=== PATIENT | female | born 2000 | race Caucasian/White ===

== ENCOUNTER → 2019-06-05 10:09 | Outpatient (CLI) | payer BC, SELFPAY ==
--- NOTE | 2019-06-05 10:25 | US_ITS ---
US transvaginal HISTORY: ITS.REASON: US T/V- Amenorrhea ORDERING PHYSICIAN: Simran Escobar MD PATIENT AGE: 18 years Comparison: None FINDINGS: The uterus is 8 x 3 x 4 cm with a combined endometrial thickness of 1 cm.. No uterine mass evident. Right ovary is 4 x 2 cm. Left ovary is 5 x 2 cm. No adnexal mass or cul-de-sac fluid evident. IMPRESSION: Unremarkable pelvic ultrasound
== END ==
PROVIDERS: PCP Family Medicine; Visit Provider Obstetrics & Gynecology
DX: N91.2 Amenorrhea, unspecified (principal)
CPT/HCPCS: 76830

== ENCOUNTER → 2020-08-05 09:46 | Outpatient (CLI) | payer BC, SELFPAY ==
--- NOTE | 2020-08-05 09:54 | XR_ITS ---
PROCEDURE: XR THORACIC SPINE 3V CLINICAL INDICATION: ACUTE L SIDED THORACIC BACK PAIN COMPARISON: No exams were available for comparison FINDINGS: There is very minor levo scoliotic curvature between C7 and T6 probably no more than 3-4 degrees. All thoracic vertebrae appear intact and all pedicles are intact. There is no paraspinal mass. IMPRESSION: Very minor levo scoliotic curvature upper thoracic spine which could actually be positional otherwise unremarkable study Dictated by: Dr. Shaun Griffith MD 08/05/2020 10:43 Dr. Shaun Griffith MD in [place] 08/05/2020 10:43
== END ==
PROVIDERS: PCP Family Medicine; Visit Provider Nurse Practitioner Family
DX: M54.6 Pain in thoracic spine (principal)
CPT/HCPCS: 72072

== ENCOUNTER 2020-11-24 11:34 | Emergency (ER) | payer OTHER, SELFPAY ==
[2020-11-24 11:40] VITALS: BP 128/77; PULSE 115; RESP 17; TEMP 36.6; O2SAT 97; BMI 46.7
--- NOTE | 2020-11-24 11:52 | XR_ITS ---
PROCEDURE: XR FOOT LT MIN 3V CLINICAL INDICATION: injured at work Posttraumatic pain COMPARISON: No exams were available for comparison FINDINGS: Calcific density noted at the base of the 2nd metatarsal laterally and may be related to an avulsion injury measuring approximately [address] may confirm if this is area of clinical concern. There is appropriate alignment at the 2nd metatarsal tarsal junction. No other significant anomalies are evident. The joint spaces are well-preserved. No significant degenerative/arthritic changes. No erosive changes evident. Other findings:None. IMPRESSION: Calcification at the base of the 2nd metatarsal which could be due to an avulsion injury age indeterminate otherwise negative. MRI or CT may provide further evaluation. Dictated by: Maico Alva MD 11/24/2020 13:55 Maico Alva MD in [place] 11/24/2020 13:55
--- NOTE | 2020-11-24 12:40 | HMH.EDUTC ---
[facility] [place] Disposition Clinical Impression: Left ankle sprain Qualifiers: Encounter type: initial encounter Involved ligament of ankle: unspecified ligament Qualified Code(s): S93.402A - Sprain of unspecified ligament of left ankle, initial encounter Left ankle pain Qualifiers: Chronicity: acute Qualified Code(s): M25.572 - Pain in left ankle and joints of left foot Disposition: Home, Self-Care Condition on Discharge: Good Instructions: How to Use Crutches, Ankle Sprain, DI for Ankle Sprain, How to Use a Walking Boot Additional Instructions: Rest the extremity, apply ice for 15 minutes as tolerated three or four times per day, Elevate the extremity as tolerated while you are resting. Take ibuprofen for pain. I sent in a prescription to your pharmacy. Follow up with Dr. Brito (podiatry). Sometimes there can be fractures that don't show up well on the first set of x-rays. So, you should follow up if you continue to have symptoms. I put in a referral but you need to call her office and schedule an appointment. Follow up with your regular doctor. GO TO THE ER FOR ANY WORSENING SYMPTOMS Prescriptions: Ibuprofen [Ibuprofen 600mg Tablet] 600 mg PO Q6HP PRN #30 tab PRN Reason: Mild Pain Transmission Status: Received by [id number] Referrals: Jcarlos Marie MD [Primary Care Provider] - Ana Rosa Ruiz MD [Physician] - Vilma Brito DPM [Staff Physician] - Forms: Work/School Release Time of Disposition: 13:28 Medical Decision Making - Medical Records Medical records reviewed: No: I reviewed the patient's medical records. - Earl Inquiry Pt receiving controlled substance: No Vital Signs: 11/24/20 11:40 11/24/20 13:32 Temperature 97.9 F 97.9 F Temperature Source Oral Pulse Rate 115 H Pulse Rate [Right Brachial] 115 H Respiratory Rate 17 17 Blood Pressure 128/77 Blood Pressure [Right Arm] 128/77 Blood Pressure Mean [Right Arm] 94 Blood Pressure Source [Right Arm] Automatic Cuff Blood Pressure Position [Right Arm] Sitting 02 Sat by Pulse Oximetry 97 Oxygen Delivery Method Room Air - Radiology Data #1 Image(s): Ankle Image Reviewed: Yes I reviewed the patient's radiology image Preliminary Findings: No Fracture Seen [facility] HPI - General Stated complaint: [id number] left foot pain Time Seen by Provider: 11/24/20 12:40 Mode of Arrival: Ambulatory Source of Information: Patient Limitations: No Limitations Description of Symptoms (Recalled from Triage Doc. 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 Since then she has had left ankle pain that is worse when she bears weight or walks on it. - Related Data Home Medications Medication Instructions Recorded Confirmed Lisinopril/Hydrochlorothiazide 1 tab PO DAILY 11/24/20 11/24/20 [Lisinopril-Hctz 10-12.5 mg Tab*] Montelukast Sodium [Singulair] 10 mg PO QPM 11/24/20 11/24/20 Previous Rx's Medication Instructions Recorded Ibuprofen [Ibuprofen 600mg 600 mg PO Q6HP PRN #30 tab 11/24/20 Tablet] Allergies Allergy/AdvReac Type Severity Reaction Status Date / Time No Known Allergies Allergy Verified 06/15/19 10:19 - Worker's Comp Is this a Worker's Comp case?: No [facility] History - Hepatitis A Screen Drug use history?: No High risk sexual behaviors?: No History of sexually transmitted infection?: No Currently employed?: No Childcare worker?: No Do you have indoor plumbing?: Yes Do you have electricity?: Yes Attestation statement:: This corey
[2020-11-24 13:32] VITALS: BP 128/77; PULSE 115; RESP 17; TEMP 36.6; O2SAT 97
== END 2020-11-24 13:45 | disposition home or self-care (01) ==
PROVIDERS: Emergency Provider Nurse Practitioner Family; PCP Family Medicine
DX: S93.402A Sprain of unspecified ligament of left ankle, initial encounter (principal); X50.1XXA Overexertion from prolonged static or awkward postures, initial encounter; Y92.69 Other specified industrial and construction area as the place of occurrence of the external cause; Y99.0 Civilian activity done for income or pay
CPT/HCPCS: 29515; 73630; 99202; G0463

== ENCOUNTER 2021-04-08 19:56 | Emergency (ER) | payer BC, SELFPAY ==
[2021-04-08 20:13] VITALS: BP 138/94; PULSE 90; RESP 16; TEMP 36.7; O2SAT 100; BMI 48.1
--- NOTE | 2021-04-08 20:18 | HMH.EDUTC ---
[facility] [place] Clinical Impression: Contact dermatitis Qualifiers: Contact dermatitis type: unspecified Contact dermatitis trigger: unspecified trigger Qualified Code(s): L25.9 - Unspecified contact dermatitis, unspecified cause Disposition: Home, Self-Care Condition on Discharge: Good Instructions: DI for Contact Dermatitis Additional Instructions: Avoid contact with the offending substance. Don't start the oral steroids until tomorrow. Follow up with your regular doctor. GO TO THE ER FOR ANY WORSENING SYMPTOMS OR CONCERNS Prescriptions: methylPREDNISolone [Medrol] 4 mg PO DIRECTED 6 Days #21 tab.[email or web address] Transmission Status: Received by [facility] Triamcinolone Acetonide 1 applicatio TP TIDP PRN 7 Days #1 tube PRN Reason: Itching Transmission Status: Received by [facility] Referrals: Jcarlos Marie MD [Primary Care Provider] - Time of Disposition: 20:22 Medical Decision Making - Medical Records Medical records reviewed: No: I reviewed the patient's medical records. - Earl Inquiry Pt receiving controlled substance: No Vital Signs: 04/08/21 20:13 04/08/21 20:25 Temperature 98.1 F 98.1 F Temperature Source Oral Pulse Rate 90 Pulse Rate [Right] 90 Respiratory Rate 16 14 Blood Pressure 138/94 H Blood Pressure [Right Arm] 138/94 H Blood Pressure Mean [Right Arm] 108 02 Sat by Pulse Oximetry 100 Orders (Tests/Meds): ED MEDICATIONS Discontinued Medications Generic Name Dose Route Start Last Admin Trade Name Freq PRN Reason Stop Dose Admin Methylprednisolone Sodium Succinate 125 mg 04/08/21 20:18 04/08/21 20:24 Methylprednisolone Sod Succ 125mg Vial IM 04/08/21 20:19 125 mg ONCE ONE Administration [facility] [place] HPI - General Stated complaint: Blister on both hands Time Seen by Provider: 04/08/21 20:18 Mode of Arrival: Ambulatory Source of Information: Patient Limitations: No Limitations Description of Symptoms (Recalled from Triage Doc. by RN): pt c/o an allergic reaction to dog bane a week ago. she has a rash on her hands and wrists and has started getting blisters on her hands. HEENT Symptoms (Recalled from RN notes): Yes Resp Symptoms (Recalled from RN notes): No Skin Symptoms (Recalled from RN notes): Yes (rash on hands and wrists bilatterally) MS Symptoms (Recalled from RN notes): No Functional Status (Recalled from RN notes): na - History of Present Illness Provider Complaint: She states that for the past 1 week, she has had itching and irritation of her left hand and forearm. She thinks that she pulled some weeds that she was allergic to before her symptoms began. It is on her right hand too, but not as bad. - Related Data Home Medications Medication Instructions Recorded Confirmed Lisinopril/Hydrochlorothiazide 1 tab PO DAILY 11/24/20 11/24/20 [Lisinopril-Hctz 10-12.5 mg Tab*] Montelukast Sodium [Singulair] 10 mg PO QPM 11/24/20 11/24/20 Previous Rx's Medication Instructions Recorded Ibuprofen [Ibuprofen 600mg 600 mg PO Q6HP PRN #30 tab 11/24/20 Tablet] Triamcinolone Acetonide 1 applicatio TP TIDP PRN 7 Days #1 04/08/21 tube methylPREDNISolone [Medrol] 4 mg PO DIRECTED 6 Days #21 04/08/21 tab.[email or web address] Allergies Allergy/AdvReac Type Severity Reaction Status Date / Time No Known Allergies Allergy Verified 06/15/19 10:19 - Worker's Comp Is this a Worker's Comp case?: No [facility] History - Hepatitis A Screen Drug use history?: No High risk sexual behaviors?: No History of sexually transmitted infection?: No Currently employed?: No Childcare worker?: No Do you have indoor plumbing?: Yes Do you have electricity?: Yes Attestation statement:: This patient has been screened for Hepatitis A risk factors. I have reviewed the patient's past medical history: Yes 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: Reports:: Hypertension Other 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: Reports: Sinus Problems Laterality Cases: Bilateral: Other Other S
[2021-04-08 20:25] VITALS: BP 138/94; PULSE 90; RESP 14; TEMP 36.7
== END 2021-04-08 20:28 | disposition home or self-care (01) ==
PROVIDERS: Emergency Provider Nurse Practitioner Family; PCP Family Medicine
DX: L25.9 Unspecified contact dermatitis, unspecified cause (principal)
CPT/HCPCS: 96372; 99202; G0463

== ENCOUNTER 2021-06-24 12:33 | Emergency (ER) | payer BC, SELFPAY ==
[2021-06-24 12:40] VITALS: BP 142/70; PULSE 116; RESP 18; TEMP 36.7; O2SAT 98; BMI 48.4
--- NOTE | 2021-06-24 13:18 | HMH.EDUTC ---
[facility] [place] Clinical Impression: Otitis externa Qualifiers: Otitis externa type: unspecified type Chronicity: unspecified Laterality: right Qualified Code(s): H60.91 - Unspecified otitis externa, right ear Disposition: Home, Self-Care Condition on Discharge: Good Instructions: How to Instill Ear Drops, Otitis Externa, DI for Otitis Externa, Etodolac Additional Instructions: Continue taking Cefdinir as prescribed by your Family Doctor Go get ear drop and start them immediately You was shown how to wick the medication into the ear if you have problems getting the medication in Follow up with your Family Doctor on Saturday if no improvement Follow up with ENT if needed Straight to ER if any life threatening symptoms Return if needed Prescriptions: Etodolac 200 mg PO Q6HP PRN #20 cap PRN Reason: Moderate Pain Transmission Status: Received by [facility] Neomyc/Colist/Hydrocort/Thonzn [Cortisporin-Tc Ear Suspension] 4 drops EAR-RIGHT QID 7 Days #1 bottle Transmission Status: Received by [facility] Referrals: Jcarlos Marie MD [Primary Care Provider] - As needed Thien Raymundo MD [Staff Physician] - Ana Rosa Butler MD [Consulting Physician] - Medical Decision Making - Earl Inquiry Pt receiving controlled substance: No Earl was queried for this patient: No Vital Signs: 06/24/21 12:40 06/24/21 13:29 Temperature 98.1 F 98.1 F Temperature Source Oral Pulse Rate 116 H Pulse Rate [Right Brachial] 116 H Respiratory Rate 18 18 Blood Pressure 142/70 H Blood Pressure [Right Arm] 142/70 H Blood Pressure Mean [Right Arm] 94 Blood Pressure Source [Right Arm] Automatic Cuff Blood Pressure Position [Right Arm] Sitting 02 Sat by Pulse Oximetry 98 Oxygen Delivery Method Room Air Orders (Tests/Meds): ED MEDICATIONS Discontinued Medications Generic Name Dose Route Start Last Admin Trade Name Freq PRN Reason Stop Dose Admin Methylprednisolone Sodium Succinate 125 mg 06/24/21 13:21 06/24/21 13:24 Methylprednisolone Sod Succ 125mg Vial IM 06/24/21 13:22 125 mg ONCE ONE Administration Medical Decision Narrative: Patient reports that she is currently on her period [facility] [place] - General Stated complaint: right earache Time Seen by Provider: 06/24/21 13:18 Mode of Arrival: Ambulatory Source of Information: Patient Limitations: No Limitations Description of Symptoms (Recalled from Triage Doc. by RN): PATIENT C/O RIGHT EAR INFECTION. STATES SHE WAS DIAGNOSED ON SATURDAY AND GIVEN CEFDINIR. SHE SAYS PAIN IS WORSE AND THERE IS DRAINAGE COMING FROM EAR HEENT Symptoms (Recalled from RN notes): Yes Resp Symptoms (Recalled from RN notes): No Skin Symptoms (Recalled from RN notes): No MS Symptoms (Recalled from RN notes): No Functional Status (Recalled from RN notes): WNL - History of Present Illness Provider Complaint: Patient state that she seen PCP on and was given oral antibotics for ear infection State that the pain in her right ear has continued to get worse and now having some drainage from the ear and pain is worse States that she has pain when she opens her mouth or touches that side of her ear State that she has done this before and had to have ear drops too - Related Data Home Medications Medication Instructions Recorded Confirmed losartan 25 mg tablet 25 mg PO DAILY 05/29/21 05/29/21 Previous Rx's Medication Instructions Recorded Etodolac 200 mg PO Q6HP PRN #20 cap 06/24/21 Neomyc/Colist/Hydrocort/Thonzn 4 drops EAR-RIGHT QID 7 Days #1 06/24/21 [Cortisporin-Tc Ear Suspension] bottle Allergies Allergy/AdvReac Type Severity Reaction Status Date / Time No Known Allergies Allergy Verified 05/29/21 15:48 - Worker's Comp Is this a Worker's Comp case?: No [facility] History - Hepatitis A Screen Drug use history?: No High risk sexual behaviors?: No History of sexually transmitted infection?: No Currently employed?: No Childcare
[2021-06-24 13:29] VITALS: BP 142/70; PULSE 116; RESP 18; TEMP 36.7; O2SAT 98
== END 2021-06-24 13:35 | disposition home or self-care (01) ==
PROVIDERS: Emergency Provider Nurse Practitioner; PCP Family Medicine
DX: H60.91 Unspecified otitis externa, right ear (principal); I10 Essential (primary) hypertension
CPT/HCPCS: 96372; 99202; G0463

== ENCOUNTER 2021-10-12 16:31 | Emergency (ER) | payer BC, SELFPAY ==
[2021-10-12 16:56] VITALS: BP 121/80; PULSE 116; RESP 18; TEMP 36.8; O2SAT 98; BMI 48.4
--- NOTE | 2021-10-12 17:06 | HMH.EDUTC ---
[facility] [place] Disposition Clinical Impression: Otitis media Qualifiers: Otitis media type: suppurative Chronicity: acute Laterality: bilateral Recurrence: non-recurrent Spontaneous tympanic membrane rupture: without spontaneous rupture Qualified Code(s): H66.003 - Acute suppurative otitis media without spontaneous rupture of ear drum, bilateral Disposition: Home, Self-Care Condition on Discharge: Good Instructions: Middle Ear Infection, DI for Otitis Media (Middle Ear Infection)-Child Additional Instructions: Drink plenty of fluids. Take tylenol or ibuprofen for pain or fever. Take the medications as directed. Follow up with your regular doctor. GO TO THE ER FOR ANY WORSENING SYMPTOMS Prescriptions: Amoxicillin/Potassium Clav [Augmentin 875-125 Tablet] 1 tab PO Q12H 10 Days #20 tab Transmission Status: Received by [facility] predniSONE [Prednisone 20mg Tab] 20 mg PO BID 5 Days #10 tab Transmission Status: Received by [facility] Referrals: Jcarlos Marie MD [Primary Care Provider] - Forms: Work/School Release Time of Disposition: 17:22 Medical Decision Making - Medical Records Medical records reviewed: No: I reviewed the patient's medical records. - Earl Inquiry Pt receiving controlled substance: No Vital Signs: 10/12/21 16:56 10/12/21 17:31 Temperature 98.3 F 98.3 F Temperature Source Oral Pulse Rate 116 H Pulse Rate [Left Radial] 116 H Respiratory Rate 18 18 Blood Pressure 121/80 Blood Pressure [Right Arm] 121/80 Blood Pressure Mean [Right Arm] 93 Blood Pressure Source [Right Arm] Automatic Cuff Blood Pressure Position [Right Arm] Sitting 02 Sat by Pulse Oximetry 98 Oxygen Delivery Method Room Air Room Air - Lab Data Lab results reviewed: Yes: I reviewed the patient's lab results. [facility] [place] HPI - General Stated complaint: ear pain Time Seen by Provider: 10/12/21 17:06 Mode of Arrival: Ambulatory Source of Information: Patient Limitations: No Limitations Description of Symptoms (Recalled from Triage Doc. by RN): pt to [facility] c/o left ear pain that started today. HEENT Symptoms (Recalled from RN notes): Yes Resp Symptoms (Recalled from RN notes): No Skin Symptoms (Recalled from RN notes): No MS Symptoms (Recalled from RN notes): No Functional Status (Recalled from RN notes): na - History of Present Illness Provider Complaint: She c/o left ear pain that started today. She has a history of getting ear infections frequently. She has some drops that her pcp prescribed her for when she gets like this, but she states they are not helping. She also has a left sided sore throat, but she states that it is not near as bad as her ear is. She denies cough, but she has sinus drainage also. - Related Data Home Medications Medication Instructions Recorded Confirmed losartan 100 1 tab PO tab 07/04/21 07/27/21 mg-hydrochlorothiazide 12.5 mg tablet Previous Rx's Medication Instructions Recorded Etodolac 200 mg PO Q6HP PRN #20 cap 06/24/21 methylprednisolone 4 mg tablets in See Rx Instructions PO PER PKG DIR 07/04/21 a dose pack #21 tab Amoxicillin/Potassium Clav 1 tab PO Q12H 10 Days #20 tab 10/12/21 [Augmentin 875-125 Tablet] predniSONE [Prednisone 20mg 20 mg PO BID 5 Days #10 tab 10/12/21 Tab] Allergies Allergy/AdvReac Type Severity Reaction Status Date / Time No Known Allergies Allergy Verified 07/27/21 14:00 - Worker's Comp Is this a Worker's Comp case?: No [facility] History - Hepatitis A Screen Drug use history?: No High risk sexual behaviors?: No History of sexually transmitted infection?: No Currently employed?: No Childcare worker?: No Do you have indoor plumbing?: Yes Do you have electricity?: Yes Attestation statement:: This patient has been screened for Hepatitis A risk factors. I have reviewed the patient's past medical history: Yes 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: Reports:: Hypertension Other 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: Reports: Si
[2021-10-12 17:31] VITALS: BP 121/80; PULSE 116; RESP 18; TEMP 36.8; O2SAT 98
== END 2021-10-12 17:32 | disposition home or self-care (01) ==
PROVIDERS: Emergency Provider Nurse Practitioner Family; PCP Family Medicine
DX: H66.003 Acute suppurative otitis media without spontaneous rupture of ear drum, bilateral (principal); I10 Essential (primary) hypertension
CPT/HCPCS: 99202; G0463

== ENCOUNTER 2021-10-17 10:28 | Emergency (ER) | payer BC, SELFPAY ==
[2021-10-17 12:39] VITALS: BP 152/89; PULSE 91; RESP 14; TEMP 37.2; O2SAT 100; BMI 48.4
--- NOTE | 2021-10-17 12:48 | HMH.EDUTC ---
[facility] [place] Clinical Impression: Otitis media Qualifiers: Otitis media type: suppurative Chronicity: acute Laterality: bilateral Recurrence: non-recurrent Spontaneous tympanic membrane rupture: without spontaneous rupture Qualified Code(s): H66.003 - Acute suppurative otitis media without spontaneous rupture of ear drum, bilateral Disposition: Home, Self-Care Condition on Discharge: Good Instructions: Middle Ear Infection Additional Instructions: Keep trying to get in to see Dr. Butler. You may need a tube in your ear drum. Regardless, she will be able to help with this. Take the medication as directed. Stop the augmentin that you are on and start the new antibiotic (cefdinir) Start the oral steroids tomorrow. Use the are drops as directed. Follow up with your primary care physician. GO TO THE ER OR ANY WORSENING SYMPTOMS OR CONCERNS Prescriptions: Ciprofloxacin HCl/Dexameth [Cipro 0.3%-Dex 0.1% Otic Susp 7.5mL] 2 drops EAR-LEFT BID 7 Days #1 ml [email or web address] methylPREDNISolone [Medrol] 4 mg PO DIRECTED 6 Days #21 packet [facility]: [email or web address] Cefdinir [Omnicef 300mg Capsule] 300 mg PO BID #20 cap Transmission Status[email or web address] Referrals: Jcarlos Marie MD [Primary Care Provider] - Time of Disposition: 13:12 Medical Decision Making - Medical Records Medical records reviewed: No: I reviewed the patient's medical records. - Earl Inquiry Pt receiving controlled substance: No Vital Signs: 10/17/21 12:39 Temperature 99 F Temperature Source Oral Pulse Rate [Left] 91 H Respiratory Rate 14 Blood Pressure [Right Arm] 152/89 H Blood Pressure Mean [Right Arm] 110 02 Sat by Pulse Oximetry 100 Orders (Tests/Meds): ED MEDICATIONS Discontinued Medications Generic Name Dose Route Start Last Admin Trade Name Freq PRN Reason Stop Dose Admin Ceftriaxone Sodium 1 gm 10/17/21 12:59 Ceftriaxone 1gm Vial IM 10/17/21 13:00 ONCE ONE Lidocaine HCl 0 ml 10/17/21 12:59 Lidocaine 1% 5ml Pf Vial IM 10/17/21 13:00 ONCE ONE Methylprednisolone Sodium Succinate 62.5 mg 10/17/21 12:59 Methylprednisolone Sod Succ 125mg Vial IM 10/17/21 13:00 ONCE ONE [facility] [place] HPI - General Stated complaint: bilateral ear pain Time Seen by Provider: 10/17/21 12:48 Mode of Arrival: Ambulatory Source of Information: Patient Limitations: No Limitations Description of Symptoms (Recalled from Triage Doc. by RN): pt c/o a L ear infection, pt was tx here on 10/12. pt states the meds have not provided any relief. HEENT Symptoms (Recalled from RN notes): Yes (ears ache) Resp Symptoms (Recalled from RN notes): No Skin Symptoms (Recalled from RN notes): No MS Symptoms (Recalled from RN notes): No Functional Status (Recalled from RN notes): wnl - History of Present Illness Provider Complaint: She is back to follow up over her ear pain and ear infection. She was here 5 days ago and started on medications for a left ear infection. She states that she has not got any better. HEr other ear is now hurting also. She has been taking the medications as directed. She sees Dr. Butler for her ear issues, but she has been unable to get in to see her due to there be no appointments available. - Related Data Home Medications Medication Instructions Recorded Confirmed losartan 100 1 tab PO tab 07/04/21 07/27/21 mg-hydrochlorothiazide 12.5 mg tablet Previous Rx's Medication Instructions Recorded Etodolac 200 mg PO Q6HP PRN #20 cap 06/24/21 methylprednisolone 4 mg tablets in See Rx Instructions PO PER PKG DIR 07/04/21 a dose pack #21 tab Amoxicillin/Potassium Clav 1 tab PO Q12H 10 Days #20 tab 10/12/21 [Augmentin 875-125 Tablet] predniSONE [Prednisone 20mg 20 mg PO BID 5 Days #10 tab 10/12/21 Tab] Cefdinir [Omnicef 300mg Capsule] 300 mg PO BID #20 cap 10/17/21 Ciprofloxacin H
[2021-10-17 13:39] VITALS: BP 152/89; PULSE 91; RESP 14; TEMP 37.2
== END 2021-10-17 13:47 | disposition home or self-care (01) ==
PROVIDERS: Emergency Provider Nurse Practitioner Family; PCP Family Medicine
DX: H66.003 Acute suppurative otitis media without spontaneous rupture of ear drum, bilateral (principal); I10 Essential (primary) hypertension
CPT/HCPCS: 96372; 99202; G0463

== ENCOUNTER 2022-01-04 16:34 | Emergency (ER) | payer BC, SELFPAY ==
[2022-01-04 17:33] VITALS: BP 158/86; PULSE 107; RESP 18; TEMP 36.6; O2SAT 97; BMI 48.4
--- NOTE | 2022-01-04 17:53 | HMH.EDUTC ---
[facility] [place] Disposition Clinical Impression: Low back strain Qualifiers: Encounter type: initial encounter Qualified Code(s): S39.012A - Strain of muscle, fascia and tendon of lower back, initial encounter Low back pain Qualifiers: Chronicity: acute Back pain laterality: bilateral Sciatica presence: without sciatica Qualified Code(s): M54.50 - Low back pain, unspecified Disposition: Home, Self-Care Condition on Discharge: Good Instructions: Low Back Pain, DI for Low Back Pain Additional Instructions: Go home and rest. It would be best if you rested tomorrow too. No heavy lifting. No twisting. Take the oral medications as directed. The muscle relaxer (cyclobenzaprine--Flexeril) will make you drowsy, so don't drive or operate heavy machinery after taking it. Don't start the oral steroids (medrol dose pack) until tomorrow, since you had the shots in here today. Follow up with your regular doctor. GO TO THE ER FOR ANY WORSENING SYMPTOMS OR CONCERN, ESPECIALLY BOWEL OR BLADDER ISSUES, SADDLE AREA NUMBNESS, FEVER, ETC Prescriptions: Cyclobenzaprine HCl [Cyclobenzaprine 10mg Tab] 10 mg PO BIDP PRN #20 tab PRN Reason: Muscle Spasm Transmission Status: Received by [id number] methylPREDNISolone [Medrol] 4 mg PO DIRECTED 6 Days #21 packet Transmission Status: Received by [id number] Referrals: Jcarlos Marie MD [Primary Care Provider] - Forms: Work/School Release Time of Disposition: 19:20 Medical Decision Making - Medical Records Medical records reviewed: No: I reviewed the patient's medical records. - Earl Inquiry Pt receiving controlled substance: No Vital Signs: 01/04/22 17:33 01/04/22 19:25 Temperature 98 F 98 F Temperature Source Oral Pulse Rate 107 H Pulse Rate [Left] 107 H Respiratory Rate 18 18 Blood Pressure 158/86 H Blood Pressure [Right Arm] 158/86 H Blood Pressure Mean [Right Arm] 110 02 Sat by Pulse Oximetry 97 - Lab Data Lab results reviewed: Yes: I reviewed the patient's lab results. Orders (Tests/Meds): ED MEDICATIONS Discontinued Medications Generic Name Dose Route Start Last Admin Trade Name Freq PRN Reason Stop Dose Admin Ketorolac Tromethamine 60 mg 01/04/22 18:42 01/04/22 18:53 Ketorolac 60mg/2ml Vial IM 01/04/22 18:43 60 mg ONCE ONE Administration Methylprednisolone Sodium Succinate 125 mg 01/04/22 18:42 01/04/22 18:53 Methylprednisolone Sod Succ 125mg Vial IM 01/04/22 18:43 125 mg ONCE ONE Administration [facility] [place] HPI - General Stated complaint: lower back pain Time Seen by Provider: 01/04/22 17:55 Mode of Arrival: Ambulatory Source of Information: Patient Limitations: No Limitations Description of Symptoms (Recalled from Triage Doc. by RN): pt c/o lower back pain that worsens with ambulation. pt states she bent down at the grocerry store to pick something up and it started hurting. HEENT Symptoms (Recalled from RN notes): No Resp Symptoms (Recalled from RN notes): No Skin Symptoms (Recalled from RN notes): No MS Symptoms (Recalled from RN notes): Yes Functional Status (Recalled from RN notes): wnl - History of Present Illness Provider Complaint: she bent over in a store to get something off the bottom shelf when she started having low back pain. Since then, she has had low back pain. It is worse when she bends or twist. She denies any fever, chills or urinary complaints. - Related Data Home Medications Medication Instructions Recorded Confirmed losartan 100 1 tab PO tab 07/04/21 07/27/21 mg-hydrochlorothiazide 12.5 mg tablet Previous Rx's Medication Instructions Recorded Etodolac 200 mg PO Q6HP PRN #20 cap 06/24/21 methylprednisolone 4 mg tablets in See Rx Instructions PO PER PKG DIR 07/04/21 a dose pack #21 tab Amoxicillin/Potassium Clav 1 tab PO Q12H 10 Days #20 tab 10/12/21 [Augmentin 875-125 Tablet] predniSONE [Prednisone 20mg 20 mg PO BID 5 Days #10 tab 10/12/21 Tab*
[2022-01-04 19:25] VITALS: BP 158/86; PULSE 107; RESP 18; TEMP 36.6
== END 2022-01-04 19:26 | disposition home or self-care (01) ==
PROVIDERS: Emergency Provider Nurse Practitioner Family; PCP Family Medicine
DX: S39.012A Strain of muscle, fascia and tendon of lower back, initial encounter (principal); M54.50 Low back pain, unspecified; I10 Essential (primary) hypertension; J34.9 Unspecified disorder of nose and nasal sinuses; Z79.52 Long term (current) use of systemic steroids; Z79.899 Other long term (current) drug therapy
CPT/HCPCS: 96372; 99213; G0463

== ENCOUNTER 2022-03-15 16:29 | Emergency (ER) | payer BC, SELFPAY ==
[2022-03-15 17:35] VITALS: BP 137/85; PULSE 91; RESP 19; TEMP 36.9; O2SAT 99; BMI 48.4
--- NOTE | 2022-03-15 17:50 | HMH.EDUTC ---
[facility] [place] Disposition Clinical Impression: Otitis media Qualifiers: Otitis media type: suppurative Chronicity: acute Laterality: right Recurrence: non-recurrent Spontaneous tympanic membrane rupture: without spontaneous rupture Qualified Code(s): H66.001 - Acute suppurative otitis media without spontaneous rupture of ear drum, right ear Disposition: Home, Self-Care Condition on Discharge: Good Instructions: Middle Ear Infection Additional Instructions: Start antibiotic as soon as possible and be sure to take as ordered for full length of time even though he should start feeling better in 24-48 hours. Tylenol or Motrin as needed for pain or fever Encourage fluids, water, Gatorade, Powerade, Pedialyte if /toddler/child Warm compresses often helps when placed over ear Return immediately for new or worsening symptoms no noticeable improvement in 48-72 hours and in 10-14 days to ensure the ears are return to baseline. Follow-up with primary care Prescriptions: Cefdinir [Omnicef 300mg Capsule] 300 mg PO BID #20 cap Transmission Status: Pending to [id number] Referrals: Jcarlos Marie MD [Primary Care Provider] - Time of Disposition: 17:52 Medical Decision Making - Earl Inquiry Pt receiving controlled substance: No Vital Signs: 03/15/22 17:35 Temperature 98.5 F Temperature Source Oral Pulse Rate [Radial] 91 H Respiratory Rate 19 Blood Pressure [Right Arm] 137/85 Blood Pressure Mean [Right Arm] 102 02 Sat by Pulse Oximetry 99 [facility] [place] HPI - General Chief complaint: Urgent [facility] Stated complaint: ear ache and dizzy Time Seen by Provider: 03/15/22 17:50 Mode of Arrival: Ambulatory Source of Information: Patient Limitations: No Limitations Description of Symptoms (Recalled from Triage Doc. by RN): pt states that she is here for an ear infection . david is worse in right. but slight pain in left ear HEENT Symptoms (Recalled from RN notes): Yes Resp Symptoms (Recalled from RN notes): No Skin Symptoms (Recalled from RN notes): No MS Symptoms (Recalled from RN notes): No Functional Status (Recalled from RN notes): wnl - History of Present Illness Provider Complaint: 21 yr old female presents for rt ear pain - Related Data Home Medications Medication Instructions Recorded Confirmed losartan 100 1 tab PO tab 07/04/21 07/27/21 mg-hydrochlorothiazide 12.5 mg tablet Previous Rx's Medication Instructions Recorded Etodolac 200 mg PO Q6HP PRN #20 cap 06/24/21 methylprednisolone 4 mg tablets in See Rx Instructions PO PER PKG DIR 07/04/21 a dose pack #21 tab Amoxicillin/Potassium Clav 1 tab PO Q12H 10 Days #20 tab 10/12/21 [Augmentin 875-125 Tablet] predniSONE [Prednisone 20mg 20 mg PO BID 5 Days #10 tab 10/12/21 Tab] Cefdinir [Omnicef 300mg Capsule] 300 mg PO BID #20 cap 10/17/21 Ciprofloxacin HCl/Dexameth [Cipro 2 drops EAR-LEFT BID 7 Days #1 ml 10/17/21 0.3%-Dex 0.1% Otic Susp 7.5mL] methylPREDNISolone [Medrol] 4 mg PO DIRECTED 6 Days #21 10/17/21 packet Cyclobenzaprine HCl 10 mg PO BIDP PRN #20 tab 01/04/22 [Cyclobenzaprine 10mg Tab] methylPREDNISolone [Medrol] 4 mg PO DIRECTED 6 Days #21 01/04/22 packet Cefdinir [Omnicef 300mg Capsule] 300 mg PO BID #20 cap 03/15/22 Allergies Allergy/AdvReac Type Severity Reaction Status Date / Time No Known Allergies Allergy Verified 07/27/21 14:00 - Worker's Comp Is this a Worker's Comp case?: No [facility] History - Hepatitis A Screen Attestation statement:: This patient has been screened for Hepatitis A risk factors. I have reviewed the patient's past medical history: Yes 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: Reports:: Hypertension Other 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: Reports: Sinus Problems Laterality Cases: Bilateral: Other Other Surgeries: Yes: No Previous Surgery, Other Amputation: No Fractures: Yes Comment: wisdom teeth - Social History Smoking Status: Never smoker Alcohol Intake: current Alcohol Intake Fr
[2022-03-15 17:57] VITALS: BP 137/85; PULSE 91; RESP 19; TEMP 36.9
== END 2022-03-15 18:05 | disposition home or self-care (01) ==
PROVIDERS: Emergency Provider Nurse Practitioner Family; PCP Family Medicine
DX: H66.001 Acute suppurative otitis media without spontaneous rupture of ear drum, right ear (principal)
CPT/HCPCS: 99212; G0463

== ENCOUNTER 2022-04-08 11:51 | Emergency (ER) | payer BC, SELFPAY ==
[2022-04-08 12:23] VITALS: BP 139/78; PULSE 106; RESP 17; TEMP 36.7; O2SAT 99; BMI 48.4
--- NOTE | 2022-04-08 12:51 | HMH.EDUTC ---
[facility] [place] Clinical Impression: Otitis media Qualifiers: Otitis media type: unspecified Laterality: bilateral Qualified Code(s): H66.93 - Otitis media, unspecified, bilateral Disposition: Home, Self-Care Condition on Discharge: Good Instructions: Middle Ear Infection, Cefdinir, Methylprednisolone Additional Instructions: Monitor Temp, Over the counter Motrin or Tylenol as directed/as needed Tylenol every 4 hours and Motrin every 6 hours (as long as your family doctor has told you that you can take it) for fever or pain. and straight to ER if unable to lower temp less than 101.0 after medication given *Warm salt water gargles may help to soothe the throat *Throat Lozenges *Warm fluids like tea with honey may help to soothe the throat *Sleep elevated *Humidifier/Vaporizer Take medication as prescribed Follow up IMMEDIATELY for new or worsening symptoms or no Noticeable improvement over the next 48-72 hours. 911 for difficulty breathing or swallowing Prescriptions: methylPREDNISolone [Medrol 4mg tab] 4 mg PO DIRECTED #21 tab Transmission Status: Pending to [facility] Cefdinir [Omnicef 300mg Capsule] 300 mg PO BID #20 cap Transmission Status: Pending to [facility] Referrals: Lalito Salcido MD [Primary Care Provider] - As needed Time of Disposition: 13:00 Medical Decision Making - Earl Inquiry Pt receiving controlled substance: No Earl was queried for this patient: No Vital Signs: 04/08/22 12:23 Temperature 98.0 F Temperature Source Oral Pulse Rate [Left Radial] 106 H Respiratory Rate 17 Blood Pressure [Right Arm] 139/78 Blood Pressure Mean [Right Arm] 98 02 Sat by Pulse Oximetry 99 Medical Decision Narrative: Recommended augmentin and pateint declined states that she takes Cefdinir to clear it up quicker denies on period now [facility] [place] - General Stated complaint: R ear pain Time Seen by Provider: 04/08/22 12:51 Mode of Arrival: Ambulatory Source of Information: Patient Description of Symptoms (Recalled from Triage Doc. by RN): patient comes in today with complaints of right ear pain. HEENT Symptoms (Recalled from RN notes): Yes Resp Symptoms (Recalled from RN notes): No Skin Symptoms (Recalled from RN notes): No MS Symptoms (Recalled from RN notes): No Functional Status (Recalled from RN notes): wnl - History of Present Illness Provider Complaint: Patient state that she has been having pain in both ears but worse in her right States she gets frequent ear infections and it has continued to get worse over the last few days - Related Data Home Medications Medication Instructions Recorded Confirmed losartan 100 1 tab PO tab 07/04/21 07/27/21 mg-hydrochlorothiazide 12.5 mg tablet Previous Rx's Medication Instructions Recorded Etodolac 200 mg PO Q6HP PRN #20 cap 06/24/21 methylprednisolone 4 mg tablets in See Rx Instructions PO PER PKG DIR 07/04/21 a dose pack #21 tab Amoxicillin/Potassium Clav 1 tab PO Q12H 10 Days #20 tab 10/12/21 [Augmentin 875-125 Tablet] predniSONE [Prednisone 20mg 20 mg PO BID 5 Days #10 tab 10/12/21 Tab] Cefdinir [Omnicef 300mg Capsule] 300 mg PO BID #20 cap 10/17/21 Ciprofloxacin HCl/Dexameth [Cipro 2 drops EAR-LEFT BID 7 Days #1 ml 10/17/21 0.3%-Dex 0.1% Otic Susp 7.5mL] methylPREDNISolone [Medrol] 4 mg PO DIRECTED 6 Days #21 10/17/21 packet Cyclobenzaprine HCl 10 mg PO BIDP PRN #20 tab 01/04/22 [Cyclobenzaprine 10mg Tab] methylPREDNISolone [Medrol] 4 mg PO DIRECTED 6 Days #21 01/04/22 packet Cefdinir [Omnicef 300mg Capsule] 300 mg PO BID #20 cap 03/15/22 predniSONE [Prednisone 20mg 20 mg PO BID #10 tab 03/15/22 Tab] Cefdinir [Omnicef 300mg Capsule] 300 mg PO BID #20 cap 04/08/22 methylPREDNISolone [Medrol 4mg 4 mg PO DIRECTED #21 tab 04/08/22 tab] Allergies Allergy/AdvReac Type Severity Reaction Status Date / Time No Known Allergies Allergy Verifi
[2022-04-08 13:07] VITALS: BP 139/78; PULSE 106; RESP 17; TEMP 36.7
== END 2022-04-08 13:08 | disposition home or self-care (01) ==
PROVIDERS: Emergency Provider Nurse Practitioner; PCP Family Medicine
DX: H66.93 Otitis media, unspecified, bilateral (principal); I10 Essential (primary) hypertension; Z79.899 Other long term (current) drug therapy
CPT/HCPCS: 99212; G0463

== ENCOUNTER 2022-05-28 11:09 | Emergency (ER) | payer BC, SELFPAY ==
[2022-05-28 11:40] VITALS: BP 149/103; PULSE 97; RESP 18; TEMP 36.8; O2SAT 98; BMI 50.6
--- NOTE | 2022-05-28 12:02 | HMH.EDUTC ---
[facility] [place] Disposition Clinical Impression: Cough Qualifiers: Cough type: unspecified Qualified Code(s): R05.9 - Cough, unspecified Disposition: Home, Self-Care Condition on Discharge: Good Instructions: Cough, DI for Ear Pain-Adult, Benzonatate Additional Instructions: *Monitor Temp, Over the counter Motrin or Tylenol as directed/as needed Tylenol every 4 hours and Motrin every 6 hours (as long as your family doctor has told you that you can take it) for fever or pain. and straight to ER if unable to lower temp less than 101.0 after medication given *Warm salt water gargles may help to soothe the throat *Throat Lozenges *Warm fluids like tea with honey may help to soothe the throat *Sleep elevated *Humidifier/Vaporizer *Flonase 2 sprays in each nostril daily but be aware that it may take 2-3 days before you notice improvement Follow up IMMEDIATELY for new or worsening symptoms or no Noticeable improvement over the next 48-72 hours. 911 for difficulty breathing or swallowing Prescriptions: Benzonatate [Benzonatate 100mg cap] 100 mg PO Q8HP PRN #30 cap PRN Reason: Cough Transmission Status: Pending to [facility] Fluticasone Propionate [Flonase 50mcg nasal spray 16gm] 1 spr NS DAILY #1 each Transmission Status: Pending to [facility] Referrals: Lalito Salcido MD [Primary Care Provider] - As needed Forms: Work/School Release Medical Decision Making - Earl Inquiry Pt receiving controlled substance: No Earl was queried for this patient: No Vital Signs: 05/28/22 11:40 Temperature 98.3 F Temperature Source Oral Pulse Rate [Right Brachial] 97 H Respiratory Rate 18 Blood Pressure [Right Arm] 149/103 H Blood Pressure Mean [Right Arm] 118 Blood Pressure Source [Right Arm] Automatic Cuff Blood Pressure Position [Right Arm] Sitting 02 Sat by Pulse Oximetry 98 Oxygen Delivery Method Room Air [facility] [place] HPI - General Stated complaint: cough,ear pain Time Seen by Provider: 05/28/22 12:02 Mode of Arrival: Ambulatory Source of Information: Patient Limitations: No Limitations Description of Symptoms (Recalled from Triage Doc. by RN): PATIENT C/O COUGH AND RIGHT EAR PAIN THAT STARTED LAST NIGHT HEENT Symptoms (Recalled from RN notes): Yes Resp Symptoms (Recalled from RN notes): Yes Skin Symptoms (Recalled from RN notes): No MS Symptoms (Recalled from RN notes): No Functional Status (Recalled from RN notes): WNL - History of Present Illness Provider Complaint: Patient states that she had COVID and has been doing better States that she started yesterday with cough and pain/pressure in her ears States that she was up most of the night with the cough States that today she came in to get checked to see if there is something she can take to help - Related Data Home Medications Medication Instructions Recorded Confirmed losartan 100 1 tab PO DAILY tab 07/04/21 05/28/22 mg-hydrochlorothiazide 12.5 mg tablet Previous Rx's Medication Instructions Recorded Benzonatate [Benzonatate 100mg 100 mg PO Q8HP PRN #30 cap 05/28/22 cap] Fluticasone Propionate [Flonase 1 spr NS DAILY #1 each 05/28/22 50mcg nasal spray 16gm] Allergies Allergy/AdvReac Type Severity Reaction Status Date / Time No Known Allergies Allergy Verified 04/08/22 12:26 - Worker's Comp Is this a Worker's Comp case?: No [facility] History - Hepatitis A Screen Attestation statement:: This patient has been screened for Hepatitis A risk factors. I have reviewed the patient's past medical history: Yes 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: Reports:: Hypertension Other 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: Reports: Sinus Problems Laterality Cases: Bilateral: Other Other Surgeries: Yes: No Previous Surgery, Other Amputation: No Fractures: Yes Comment: wisdom teeth - Social History Smoking Status: Never smoker Alcohol Intake: never Alcohol Intake Frequency:: holidays/special occasions only Substance Use Type: denies use Occupational Status: o
[2022-05-28 12:18] VITALS: BP 149/103; PULSE 97; RESP 18; TEMP 36.8; O2SAT 98
== END 2022-05-28 12:21 | disposition home or self-care (01) ==
PROVIDERS: Emergency Provider Nurse Practitioner; PCP Family Medicine
DX: R05.9 Cough, unspecified (principal); H92.01 Otalgia, right ear
CPT/HCPCS: 99212; G0463

== ENCOUNTER → 2022-06-01 09:31 | Outpatient (CLI) | payer BC, SELFPAY ==
--- NOTE | 2022-06-01 09:34 | XR_ITS ---
FINAL REPORT CLINICAL HISTORY: POST VIRAL COUGH SYNDROME FINDINGS: PA and lateral views of the chest were obtained. There is no prior exam for comparison. The cardiac and mediastinal silhouettes are within normal limits. The lungs are clear. There is no pleural effusion or pneumothorax. No acute osseous abnormality is identified. IMPRESSION: No radiographic evidence of acute cardiac or pulmonary disease. Reviewed, Interpreted and Dictated by Ann Rod MD Transcribed by Mason Donnelly Authenticated and [facility]
== END ==
PROVIDERS: PCP Nurse Practitioner Family; Visit Provider Nurse Practitioner Family
DX: R05.8 Other specified cough (principal)
CPT/HCPCS: 71046

== ENCOUNTER → 2022-06-12 08:08 | Outpatient (CLI) | payer BC, SELFPAY ==
[2022-06-12 08:30] VITALS: PULSE 104; PULSE 97
== END ==
PROVIDERS: PCP Nurse Practitioner Family; Visit Provider Nurse Practitioner Family
DX: R05.8 Other specified cough (principal)
CPT/HCPCS: 94060; 94640

== ENCOUNTER 2023-06-22 13:12 | Emergency (ER) | payer BC, SELFPAY ==
[2023-06-22 13:15] VITALS: BP 143/83; PULSE 84; RESP 18; TEMP 36.7; O2SAT 97; BMI 49.0
--- NOTE | 2023-06-22 13:24 | EXP.UTC ---
Discharge Plan Disposition Patient Disposition: Home, Self-Care Condition: Good Prescriptions Prescriptions: New cefdinir 300 mg capsule 300 mg PO BID Qty: 20 0RF No Action losartan-hydrochlorothiazide 100-12.5 mg tablet 1 tab PO DAILY Referrals Follow up/Referrals: Lalito Salcido MD [Primary Care Provider] - See instructions Activity Restrictions/Add. Instructions Additional Instructions/Restrictions: Start antibiotic as soon as possible and be sure to take as ordered for full length of time even though he should start feeling better in 24-48 hours. Tylenol or Motrin as needed for pain or fever Encourage fluids, water, Gatorade, Powerade, Pedialyte if infant/toddler/child Warm compresses often helps when placed over ear Return immediately for new or worsening symptoms no noticeable improvement in 48-72 hours and in 10-14 days to ensure the ears are return to baseline. Follow-up with primary care Clinical Impressions Clinical Impression: Otitis media Qualifiers: Otitis media type: suppurative Chronicity: acute Laterality: left Recurrence: non-recurrent Spontaneous tympanic membrane rupture: without spontaneous rupture Qualified Code(s): H66.002 - Acute suppurative otitis media without spontaneous rupture of ear drum, left ear Instructions Patient Instructions: Middle Ear Infection Discharge ED Provider: John ([facility])Jeanie [facility] [place] H[place] General Stated complaint: left ear pain Mode of Arrival: Ambulatory Source of Information: Patient Limitations: No Limitations Time Seen by Provider: 06/22/23 13:28 Description of Symptoms (Recalled from Triage Doc. by RN): PATIENT C/O LEFT EAR PAIN THAT STARTED TODAY HEENT Symptoms (Recalled from RN notes): Yes Resp Symptoms (Recalled from RN notes): No Skin Symptoms (Recalled from RN notes): No MS Symptoms (Recalled from RN notes): No Functional Status (Recalled from RN notes): WNL History of Present Illness Provider Complaint: 22 yr old female presents for left ear pain that started today Related Data Home Medications Medication Instructions Recorded Confirmed losartan 100 1 tab PO DAILY Hypertension 07/04/21 06/22/23 mg-hydrochlorothiazide 12.5 mg tablet Previous Rx's Medication Instructions Recorded cefdinir 300 mg capsule 300 mg PO BID #20 caps 06/22/23 Allergies Allergy/AdvReac Type Severity Reaction Status Date / Time No Known Allergies Allergy Verified 04/08/22 12:26 Worker's Comp Is this a Worker's Comp case?: No [facility] Disclaimer: The information contained in this section may have been updated after the patient was seen, as this information can be updated by other users. 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 (Reviewed 06/22/23 @ 13:28 by Jeanie Lopez ([facility]), BEHAVIORAL HEALTH CASE MANAGER) Hypertension Social History (Reviewed 06/22/23 @ 13:28 by Jeanie Lopez ([facility]), BEHAVIORAL HEALTH CASE MANAGER) Smoking Status: Never smoker alcohol intake: never counseling provided: none substance use type: denies use current occupational status: other Travel in the last 8 weeks: None ROS Obtained: Yes All systems reviewed & no additional complaints except as documented Constitutional Constitutional: Reports system reviewed and no additional complaints, except as documented Eyes Eyes: Reports system reviewed and no additional complaints, except as documented ENT Ears, Nose, Mouth, and Throat: Reports system reviewed and no additional complaints, except as documented, Reports as per HPI and Reports otalgia Cardiovascular Cardiovascular: Reports system reviewed and no additional complaints, except as documented Respiratory Respiratory: Reports system reviewed and no additional complaints, except as documented Gastrointestinal Gastrointestingal: Reports system reviewed and no additional complaints, except as documented Integumentary/Breasts Skin/Breast: Reports system reviewed and no additional complaints, except as documented Neurologic Neurologic: Reports system reviewed and no addit
[2023-06-22 13:41] VITALS: BP 143/83; PULSE 84; RESP 18; TEMP 36.7; O2SAT 97
== END 2023-06-22 13:52 | disposition home or self-care (01) ==
PROVIDERS: Emergency Provider Nurse Practitioner Family; PCP Family Medicine
DX: H66.002 Acute suppurative otitis media without spontaneous rupture of ear drum, left ear (principal); I10 Essential (primary) hypertension
CPT/HCPCS: 96372; 99212; 99214; G0463; J0696

== ENCOUNTER 2024-04-04 15:45 | Emergency (ER) | payer BC, SELFPAY ==
[2024-04-04 16:15] VITALS: BP 151/85; PULSE 92; RESP 18; TEMP 36.9; O2SAT 98; BMI 50.0
--- NOTE | 2024-04-04 16:32 | EXP.UTC ---
Discharge Plan Disposition Patient Disposition: Home, Self-Care Condition: Good Prescriptions Prescriptions: New benzonatate 100 mg capsule 100 mg PO TIDP PRN (Reason: Cough) Qty: 30 0RF methylprednisolone 4 mg Tablets,Dose Pack 4 mg PO DIRECTED 6 Days Qty: 21 0RF Rx Instructions: Take 1 pack as directed for 6 days albuterol sulfate [Ventolin HFA] 90 mcg/actuation HFA aerosol inhaler 2 puff inhalation Q6H PRN (Reason: shortness of breath or wheezing) Qty: 6.7 0RF albuterol sulfate 2.5 mg /3 mL (0.083 %) solution for nebulization 2.5 mg inhalation Q6H PRN (Reason: shortness of breath or wheezing) Qty: 75 0RF No Action losartan-hydrochlorothiazide 100-12.5 mg tablet 1 tab PO DAILY Referrals Follow up/Referrals: Lalito Salcido MD [Primary Care Provider] - See instructions Activity Restrictions/Add. Instructions Additional Instructions/Restrictions: Drink plenty of fluids. Take tylenol or ibuprofen for pain or fever. Take the medications as directed. Follow up with your regular doctor. GO TO THE ER FOR ANY WORSENING SYMPTOMS Clinical Impressions Clinical Impression: Acute bronchitis Instructions Patient Instructions: Acute Bronchitis, DI for Acute Bronchitis Discharge ED Provider: Torres Burroughs [facility] General Stated complaint: diff breathing. cough Time Seen by Provider: 04/04/24 16:32 Related Data Home Medications Medication Instructions Recorded Confirmed losartan 100 1 tab PO DAILY Hypertension 07/04/21 04/04/24 mg-hydrochlorothiazide 12.5 mg tablet Previous Rx's Medication Instructions Recorded albuterol sulfate 2.5 mg/3 mL 2.5 mg (3 mL) inhalation Q6H PRN 04/04/24 (0.083 %) solution for nebulization shortness of breath or wheezing #75 mL albuterol sulfate 90 mcg/actuation 2 puff inhalation Q6H PRN 04/04/24 aerosol inhaler (Ventolin HFA) shortness of breath or wheezing #6.7 grams benzonatate 100 mg capsule 100 mg PO TIDP PRN Cough #30 caps 04/04/24 methylprednisolone 4 mg tablets in 4 mg PO DIRECTED 6 days #21 tabs 04/04/24 a dose pack Allergies Allergy/AdvReac Type Severity Reaction Status Date / Time lisinopril Allergy Other Verified 04/04/24 16:37 [facility] Disclaimer: The information contained in this section may have been updated after the patient was seen, as this information can be updated by other users. 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) Hypertension Social History Smoking Status: Never smoker alcohol intake: never counseling provided: none substance use type: denies use current occupational status: other Travel in the last 8 weeks: None ROS Obtained: Yes All systems reviewed & no additional complaints except as documented Constitutional Constitutional: Reports chills and Reports fever(s) Eyes Eyes: Denies eye discharge ENT Ears, Nose, Mouth, and Throat: Reports as per HPI Cardiovascular Cardiovascular: Denies chest pain Respiratory Respiratory: Denies chest congestion and Reports cough Gastrointestinal Gastrointestingal: Reports nausea; Denies abdominal pain, constipation, cramping, diarrhea or vomiting Musculoskeletal Musculoskeletal: Denies arthralgias Integumentary/Breasts Skin/Breast: Denies rash Neurologic Neurologic: Denies paresthesias Physical Exam General General appearance: alert and in no apparent distress Head Head exam: atraumatic, normocephalic and normal inspection Eye Eye exam: Present normal appearance, PERRL and EOMI ENT ENT exam: Present mucous membranes moist and normal external ear exam Expanded ENT Exam TM/Canal exam: Bilateral TM: erythema and bulging Nose exam: Absent sinus tenderness Mouth exam: Present normal external inspection; Absent drooling Teeth exam: Present normal inspection Throat exam: Present tonsillar erythema, tonsillomegaly and tonsillar exudate Neck Neck exam: Present normal inspection, full ROM and trachea midline; Absent tenderness, meningismus or lymphadenopathy Chest Chest inspection: Present normal inspection and symmetric chest wall rise; Absent tenderness Respiratory Respiratory exam: Present normal lung sounds bilaterally; Absent respiratory distress, wheezes, stridor or accessory muscle use Cardiovascular Cardiovascular exam: Present regular rate and normal rhythm; Absent systolic murmur or diastolic murmur Abdominal Exam Abdominal exam: Present soft and normal bowel sounds; Absent distention, tenderness, guarding, rebound or rigidity Extremities Exam Extremities exam: Present normal inspection and normal capillary refill; Absent calf tenderness Back Exam Back exam: Present normal inspection and full ROM; Absent tenderness, CVA tenderness (R) or CVA tenderness (L) Neurological Exam Neurological exam: Present alert, oriented X3 and CN II-XII intact Psychiatric Psychiatric exam: Present normal affect and normal mood Skin Skin exam: Present warm, dry, intact and normal color Medical Decision Making Medical Records Medical records reviewed: No I reviewed the patient's medical records. Earl Inquiry Pt receiving controlled substance: No
[2024-04-04 17:23] VITALS: BP 151/85; PULSE 92; RESP 18; TEMP 36.9; O2SAT 98
== END 2024-04-04 17:23 | disposition home or self-care (01) ==
PROVIDERS: Emergency Provider Nurse Practitioner Family; PCP Family Medicine
DX: J20.9 Acute bronchitis, unspecified (principal); R06.9 Unspecified abnormalities of breathing; R05.9 Cough, unspecified
CPT/HCPCS: 99212; 99214; G0463

== ENCOUNTER 2024-04-18 14:28 | Emergency (ER) | payer BC, SELFPAY ==
--- NOTE | 2024-04-18 14:39 | XR_ITS ---
PROCEDURE INFORMATION: Exam: XR Chest Exam date and time: 04/18/2024 2:35 PM Age: 23 years old Clinical indication: Pain; Chest pressure; Additional info: Lung pain TECHNIQUE: Imaging protocol: Radiologic exam of the chest. Views: 2 views. COMPARISON: CR XR CHEST 2V 06/01/2022 9:37 AM FINDINGS: Lungs: Normal. Pleural spaces: Unremarkable. No pleural effusion. No pneumothorax. Heart/Mediastinum: Normal. Bones/joints: No acute abnormality. IMPRESSION: No acute findings.
[2024-04-18 15:00] VITALS: BP 137/98; PULSE 73; RESP 18; TEMP 36.8; O2SAT 98; BMI 48.4
--- NOTE | 2024-04-18 15:04 | EXP.UTC ---
Discharge Plan Disposition Patient Disposition: Home, Self-Care Condition: Good Prescriptions Prescriptions: New azithromycin [Zithromax] 250 mg tablet 250 mg PO UD DOSE PK Qty: 6 0RF Rx Instructions: Take two (2) tablets today, then one (1) tablet days #2 thru #5 benzonatate 100 mg capsule 100 mg PO TIDP PRN (Reason: Cough) Qty: 30 0RF methylprednisolone 4 mg Tablets,Dose Pack 4 mg PO DIRECTED 6 Days Qty: 21 0RF Rx Instructions: Take 1 pack as directed for 6 days No Action losartan-hydrochlorothiazide 100-12.5 mg tablet 1 tab PO DAILY albuterol sulfate [Ventolin HFA] 90 mcg/actuation HFA aerosol inhaler 2 puff inhalation Q6H PRN (Reason: shortness of breath or wheezing) Qty: 6.7 0RF albuterol sulfate 2.5 mg /3 mL (0.083 %) solution for nebulization 2.5 mg inhalation Q6H PRN (Reason: shortness of breath or wheezing) Qty: 75 0RF Referrals Follow up/Referrals: Lalito Salcido MD [Primary Care Provider] - See instructions Activity Restrictions/Add. Instructions Additional Instructions/Restrictions: Drink plenty of fluids. Take tylenol or ibuprofen for pain or fever. Take the medications as directed. Follow up with your regular doctor. GO TO THE ER FOR ANY WORSENING SYMPTOMS Clinical Impressions Clinical Impression: Acute bronchitis Instructions Patient Instructions: Acute Bronchitis, DI for Acute Bronchitis, Azithromycin Discharge ED Provider: Torres Burroughs [facility] General Stated complaint: pain in lungs while breathing, poss fever Time Seen by Provider: 04/18/24 15:04 History of Present Illness Provider Complaint: She is back with cough and chest congestion. She states that she did get better while she was on the steroids about 10 days ago, but after finishing her symptoms have returned. She denies shortness of breath. Related Data Home Medications Medication Instructions Recorded Confirmed losartan 100 1 tab PO DAILY Hypertension 07/04/21 04/18/24 mg-hydrochlorothiazide 12.5 mg tablet Previous Rx's Medication Instructions Recorded albuterol sulfate 2.5 mg/3 mL 2.5 mg (3 mL) inhalation Q6H PRN 04/04/24 (0.083 %) solution for nebulization shortness of breath or wheezing #75 mL albuterol sulfate 90 mcg/actuation 2 puff inhalation Q6H PRN 04/04/24 aerosol inhaler (Ventolin HFA) shortness of breath or wheezing #6.7 grams azithromycin 250 mg tablet 250 mg PO UD DOSE PK #6 tabs 04/18/24 (Zithromax) benzonatate 100 mg capsule 100 mg PO TIDP PRN Cough #30 caps 04/18/24 methylprednisolone 4 mg tablets in 4 mg PO DIRECTED 6 days #21 tabs 04/18/24 a dose pack Allergies Allergy/AdvReac Type Severity Reaction Status Date / Time lisinopril Allergy Other Verified 04/18/24 15:13 [facility] Disclaimer: The information contained in this section may have been updated after the patient was seen, as this information can be updated by other users. 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 Social History Smoking Status: Never smoker alcohol intake: never counseling provided: none substance use type: denies use current occupational status: other Travel in the last 8 weeks: None ROS Obtained: Yes All systems reviewed & no additional complaints except as documented Constitutional Constitutional: Reports poor appetite Eyes Eyes: Reports system reviewed and no additional complaints, except as documented ENT Ears, Nose, Mouth, and Throat: Reports as per HPI Cardiovascular Cardiovascular: Reports system reviewed and no additional complaints, except as documented and Denies chest pain Respiratory Respiratory: Denies shortness of breath, Reports chest congestion, Reports cough, Denies stridor and Denies wheezing Gastrointestinal Gastrointestingal: Reports system reviewed and no additional complaints, except as documented; Denies abdominal pain, diarrhea or vomiting Musculoskeletal Musculoskeletal: Reports system reviewed and no additional complaints, except as documented and Denies arthralgias Integumentary/Breasts Skin/Breast: Reports system reviewed and no additional complaints, except as documented and Denies rash Neurologic Neurologic: Denies paresthesias Allergic/Immunologic Allergic/Immunologic: Denies wheezing Physical Exam General General appearance: alert and in no apparent distress Head Head exam: atraumatic, normocephalic and normal inspection Eye Eye exam: Present normal appearance, PERRL and EOMI ENT ENT exam: Present normal exam, normal oropharynx, mucous membranes moist, TM's normal bilaterally and normal external ear exam Neck Neck exam: Present normal inspection, full ROM and trachea midline; Absent meningismus or lymphadenopathy Chest Chest inspection: Present normal inspection and symmetric chest wall rise; Absent tenderness Respiratory Respiratory exam: Present normal lung sounds bilaterally; Absent respiratory distress Cardiovascular Cardiovascular exam: Present regular rate and normal rhythm; Absent JVD Abdominal Exam Abdominal exam: Present soft and normal bowel sounds; Absent distention, tenderness or guarding Extremities Exam Extremities exam: Present normal inspection, full ROM and normal capillary refill; Absent calf tenderness Back Exam Back exam: Present normal inspection; Absent tenderness Neurological Exam Neurological exam: Present alert and oriented X3 Psychiatric Psychiatric exam: Present normal affect and normal mood Skin Skin exam: Present warm, dry, intact and normal color Lymphatic Lymphatic Findings: no adenopathy Medical Decision Making Medical Records Medical records reviewed: No I reviewed the patient's medical records. Earl Inquiry Pt receiving controlled substance: No Orders (Tests/Meds): ORDERS Category Date Time Status Chest XR 2 view (NOT portable) [XR chest 2V] Stat Exams 04/18/24 14:39 Taken Radiology Data #1: Image(s): Chest Image Reviewed: Yes I reviewed the patient's radiology image and Yes I have reviewed radiologist's interpretation Preliminary Findings: Normal/NAD and No Infiltrates Seen Accession No. : [id number] Patient Name / ID : RITCHIE NAYAK MARCH / [id number] Exam Date : 04/18/2024 14:35:50 ( Final ) Study Comment : Sex / Age : F / 23Y Creator : CHALINO BOSTON MD Dictator : Reservations Clerk : Sales Development Consultant : CHALINO BOSTON MD Approver2 : Report Date : 04/18/2024 15:51:45 My Comment : PROCEDURE INFORMATION: Exam: XR Chest Exam date and time: 04/18/2024 2:35 PM Age: 23 years old Clinical indication: Pain; Chest pressure; Additional info: Lung pain TECHNIQUE: Imaging protocol: Radiologic exam of the chest. Views: 2 views. COMPARISON: CR XR CHEST 2V 06/01/2022 9:37 AM FINDINGS: Lungs: Normal. Pleural spaces: Unremarkable. No pleural effusion. No pneumothorax. Heart/Mediastinum: Normal. Bones/joints: No acute abnormality. IMPRESSION: No acute findings.
[2024-04-18 16:04] VITALS: BP 137/98; PULSE 73; RESP 18; TEMP 36.8; O2SAT 98
== END 2024-04-18 16:04 | disposition home or self-care (01) ==
PROVIDERS: Emergency Provider Nurse Practitioner Family; PCP Family Medicine
DX: R07.1 Chest pain on breathing (principal); J20.9 Acute bronchitis, unspecified; R05.9 Cough, unspecified
CPT/HCPCS: 71046; 99212; 99214; G0463

== ENCOUNTER 2024-06-02 11:12 | Outpatient (CLI) | payer BC, SELFPAY ==
[2024-06-02 12:50] LABS: Adenovirus F 40/41, stool Not Detected (NotDetected); Astrovirus Not Detected (NotDetected); Campylobacter Not Detected (NotDetected); Clostridium Difficile A/B, PCR Not Detected (NotDetected); Cryptosporidium Not Detected (NotDetected); Cyclospora Cayetanesis Not Detected (NotDetected); Entamoeba histolytica Not Detected (NotDetected); Enteroaggregative E coli Not Detected (NotDetected); Enteropathogenic E coli Not Detected (NotDetected); Enterotoxigenic E coli Not Detected (NotDetected); Giardia lamblia Not Detected (NotDetected); Plesimonas Shigalloides, PCR Not Detected (NotDetected); Rotavirus A Not Detected (NotDetected); Salmonella, PCR Not Detected (NotDetected); Sapovirus Not Detected (NotDetected); Shiga-like toxin E coli Not Detected (NotDetected); Shigella Enterovasive E coli Not Detected (NotDetected); Vibrio Cholerae Not Detected (NotDetected); Vibrio, PCR Not Detected (NotDetected); Yersinia Entercolitica, PCR Not Detected (NotDetected)
[2024-06-02 14:44] LABS: Norovirus Detected (NotDetected)
== END 2024-06-02 23:59 | disposition home or self-care (01) ==
LOC: LAB.DROPOF 11:12
PROVIDERS: PCP Family Medicine; Visit Provider Family Medicine
DX: A09 Infectious gastroenteritis and colitis, unspecified (principal)
CPT/HCPCS: 87507